=== PATIENT | female | born 1950 | race Caucasian/White ===

== ENCOUNTER 2016-11-19 13:27 | Emergency (ER) | payer MEDICARE ==
[~2016-11-19] VITALS: Ht 152.4 cm; Wt 65.0 kg
[~2016-11-19 13:27] MED LIST: ASPI81TA82 PO; MELO15TA2 PO; METH750T2 PO; METO25 PO; TRAM50 PO
[2016-11-19 13:34] VITALS: BP 119/81; PULSE 93; RESP 16; TEMP 99; O2SAT 97
--- NOTE | 2016-11-19 15:34 | PD ---
HPI Chief Complaint: Back/ Neck Pain or Injury Time Seen by Provider: 14:30 Travel History International Travel<30 days: No Contact w/Intl Traveler<30days: No Traveled to known affect area: No History of Present Illness HPI 66-year-old female presents to the emergency room for evaluation of low back pain for the past 3 days. Patient denies trauma or injury. States 4 days ago she lifted her dog out of a crate but had no pain at that time. The following morning she woke up with severe pain localized to the sacral area without any radiation. She denies any other hip or pelvic pain. States it has progressively gotten worse every day. She has been taking Motrin for pain with minimal relief in symptoms. She has a history of osteoporosis. Patient denies saddle anesthesia, loss of bowel or bladder control, lower extremity paresthesias, and IV drug use. PFSH Past Medical History Hx Anticoagulant Therapy: No Congestive Heart Failure: Yes Diabetes: No Diminished Hearing: No Headaches: Yes Hepatitis: Yes (HEPATITIS C FROM IV DRUG USE 20 YRS AGO) ?: Not Menopausal: Yes Past Surgical History Gynecologic Surgery: Yes (HYSTERECTOMY 1986) Hysterectomy: Yes Social History Alcohol Use: No Tobacco Use: No Substance Use: No Allergies-Medications (Allergen,Severity, Reaction): Coded Allergies: No Known Allergies (Verified , 11/19/16) Reported Meds & Prescriptions Reported Meds & Active Scripts Active Lortab (Hydrocodone-Acetaminophen) 5-325 Mg Tab 1 Tab PO Q6H PRN Review of Systems Except as stated in HPI: all other systems reviewed are Neg Physical Exam Narrative GENERAL: Well-nourished, well-developed female in no acute distress. Afebrile. Ambulatory. SKIN: Focused skin assessment warm/dry. HEAD: Normocephalic. EYES: No scleral icterus. No injection or drainage. NECK: Supple, trachea midline. No JVD or lymphadenopathy. CARDIOVASCULAR: Regular rate and rhythm without murmurs, gallops, or rubs. RESPIRATORY: Breath sounds equal bilaterally. No accessory muscle use. BACK: No CVA tenderness. No rash. Moderate to severe tenderness on palpation of the lower lumbar spine. 1+ Achilles and patellar reflexes are equal bilaterally. Strength 5/5 and equal in lower extremities. Data Data Last Documented VS Vital Signs Date Time Temp Pulse Resp B/P Pulse Ox O2 Delivery O2 Flow Rate FiO2 11/19/16 13:34 99.0 93 16 119/[address] Lumb Spine W/O Contrast (11/19/16 ) MDM Medical Decision Making Medical Screen Exam Complete: Yes Emergency Medical Condition: Yes Medical Record Reviewed: Yes Differential Diagnosis Back spasm, muscle pain, fracture, abrasion, osteoarthritis Narrative Course 66 year-old female with history of osteoporosis presents to the emergency room for evaluation of sacral pain for the past 3 days. Patient denies any specific trauma or injury. She has been ambulatory with a cane since onset of symptoms but with significant pain. No focal neurological deficits. Given patient's history of osteoporosis and extreme pain and point tenderness to palpation, a CT was ordered. CT shows unilateral sacral insufficiency fracture. Up-to- [email or web address].com recommends early mobilization and adequate pain control. Patient was informed that as long as she can ambulate and tolerate pain, she is stable for discharge. She is able to maneuver on the bed without significant difficulty but is obviously in pain. She declined pain medication in the emergency room because she wanted to be able to drive home. Patient believes she will be safe at home. She lives alone but has "an estranged " to help her if needed. She was told to follow up with an orthopedist or return for worsening symptoms. Given lifting restrictions. She understands and agrees to plan. Diagnosis Primary Impression: Sacral insufficiency fracture Qualified Code: M84.48XA - Sacral insufficiency fracture, initial encounter Referrals: Orthopedist Patient Instructions: General Instructions, Sacral Fracture (ED) Additional Instructions: Rest and drink plenty of fluids. Take Lortab as directed, as needed for pain. Apply ice to the affected area for 20 minutes at a time, as needed for pain. Do not drink alcohol or drive while taking this medication. Follow-up with an orthopedic surgeon or primary care physician for recheck in one week. Return to the emergency room for worsening symptoms. Med/Other Pt SpecificInfo: Prescription(s) given Scripts Hydrocodone-Acetaminophen (Lortab)5-325 Mg Tab1 Tab PO Q6H PRN (PAIN) #15 TAB Ref 0 Prov:Augustine Sanabria MD 11/19/16 Disposition: 01 DISCHARGE HOME Condition: Stable Randa Nava Nov 19, 2016 15:34
--- NOTE | 2016-11-19 16:17 | RADRPT ---
EXAM DATE/TIME: 11/19/2016 15:21 [facility] COMPARISON: No previous studies available for comparison. INDICATIONS : Back pain from lifting dog from vehicle. RADIATION DOSE: 26.11 CTDIvol (mGy) MEDICAL HISTORY : Hepatitis C. SURGICAL HISTORY : Hysterectomy. ENCOUNTER: Initial ACUITY: 1 day PAIN SCALE: 9/10 LOCATION: [facility] TECHNIQUE: Volumetric scanning of the lumbar spine was performed. Multiplanar reconstructions in the sagittal, coronal and oblique axial planes were performed. Using automated exposure control and adjustment of the mA and/or kV according to patient size, radiation dose was kept as low as reasonably achievable t o obtain optimal diagnostic quality images. DICOM format image data is available electronically for review and comparison. FINDINGS: VERTEBRAE: Normal vertebral body height. ALIGNMENT: No evidence of subluxation. There is a sacral insufficiency fracture multiple left sacrum. The right appears intact. T12-L1: The thecal sac has a normal diameter. No evidence of disc bulge or protrusion. The neural foramina are patent bilaterally. L1-L2: The thecal sac has a normal diameter. No evidence of disc bulge or protrusion. The neural foramina are patent bilaterally. L2-L3: Minimal broad-based disc bulge. Central canal and lateral recesses are patent. Neural foramina are pa tent. Facet joints are unremarkable. L3-L4: The thecal sac has a normal diameter. No evidence of disc bulge or protrusion. The neural foramina are patent bilaterally. L4-L5: A minimal broad based disc bulge. Lateral recesses and central canal are patent. Mild bony hypertroph y and ligamentum flavum hypertrophy of the facets. Neural foramina are patent. L5-S1: A left posterior lateral disc bulge. No abutment of the cord or narrowing of the neural foramen. Late ral recess is patent. Central canal is patent. Facet joints are unremarkable. CONCLUSION: Left-sided sacral insufficiency fracture. Morteza Valdes Jr., MD on November 19, 2016 at 16:11 Board Certified Radiologist. This report was verified electronically.
[2016-11-19] MEDS ORDERED: HYDR-3533 PO (16:43)
== END 2016-11-19 17:06 | disposition home or self-care (01) ==
LOC: PHEFT 13:27
DX: M84.48XA Pathological fracture, other site, initial encounter for fracture (principal)
CPT/HCPCS: 72131; 99284

== ENCOUNTER 2016-12-11 18:51 | Emergency (ER) | payer MEDICARE ==
[~2016-12-11] VITALS: Ht 152.4 cm; Wt 66.6 kg
[~2016-12-11 18:51] MED LIST changes: -ASPI81TA82 PO; +HYDR-3533 PO; -MELO15TA2 PO; -METH750T2 PO; -METO25 PO; -TRAM50 PO
[2016-12-11 18:54] VITALS: BP 151/85; PULSE 86; RESP 18; TEMP 98.2; O2SAT 97
[2016-12-11 19:15] VITALS: BP 133/78; PULSE 77; RESP 20; O2SAT 96
[2016-12-11 19:20] VITALS: BP_SYST 133; BP_SYST 134; BP_DIAS 78; BP_DIAS 82; PULSE 77; RESP 20; O2SAT 96
[2016-12-11] MEDS ORDERED: HYDR-3580 PO (19:36)
[2016-12-11] MEDS ORDERED: VALT500T PO (19:36)
[2016-12-11] MEDS ORDERED: AUGM500T7 PO (19:36)
[2016-12-11 19:45] LABS: AUTOMATED NEUTROPHIL # 2.8 TH/MM3 (1.8-7.7); BASOPHIL # 0.1 TH/MM3 (0-0.2); BASOPHIL % 0.9 % (0.0-2.0); EOSINOPHIL # 0.2 TH/MM3 (0-0.4); EOSINOPHIL % 3.1 % (0.0-4.0); HEMATOCRIT 38.9 % (35.0-46.0); HEMO FLAGS DIFF FINAL; LYMPH % 37.2 % (9.0-44.0); LYMPHOCYTE # 2.1 TH/MM3 (1.0-4.8); MEAN CELL VOLUME 87.2 FL (80.0-100.0); MEAN CORPUSCULAR HEMOGLOBIN 29.3 PG (27.0-34.0); MEAN CORPUSCULAR HGB CONC 33.5 % (32.0-36.0); MONO % 9.5 % (0.0-8.0); NEUT % 49.3 % (16.0-70.0); PLATELET COUNT 299 TH/MM3 (150-450); RED BLOOD COUNT 4.46 MIL/MM3 (4.00-5.30); RED CELL DISTRIBUTION WIDTH 12.2 % (11.6-17.2); WHITE BLOOD COUNT 5.7 TH/MM3 (4.0-11.0)
[2016-12-11] MEDS ORDERED: SODIUM CHLORIDE 0.9% FLUSH 10 ML FLUSH IVF PRN (19:45)
[2016-12-11 19:53] LABS: CHLORIDE 102 MEQ/L (98-107); POTASSIUM 4.1 MEQ/L (3.5-5.1); SODIUM (NA) 139 MEQ/L (136-145)
[2016-12-11 19:57] LABS: ANION GAP 5 MEQ/L (5-15); BICARBONATE 31.7 MEQ/L (21.0-32.0); BLOOD UREA NITROGEN 15 MG/DL (7-18); MAGNESIUM 1.9 MG/DL (1.5-2.5)
[2016-12-11 20:00] LABS: GLOMERULAR FILTRATION RATE 85 ML/MIN (>89)
[2016-12-11 20:02] LABS: APTT (PATIENT) 25.7 SEC (24.3-30.1); INTERNATIONAL NORMALIZED RATIO 0.9 RATIO
--- NOTE | 2016-12-11 20:05 | PD ---
HPI Chief Complaint: Dizziness Time Seen by Provider: 19:31 Travel History International Travel<30 days: No Contact w/Intl Traveler<30days: No Traveled to known affect area: No History of Present Illness HPI 66-year-old female presents to the emergency department complaining of dizziness intermittent headache and nausea since this morning. Patient denies any fall or injury. Patient was recently evaluated in the emergency department and diagnosed with sacral insufficiency fractures bilaterally and has been on bed rest since 11/19/16. Patient has remained as active as possible while at bed rest and has been ambulatory with assistance of walker and using wheelchair in her home. Patient has friends to check on her daily. Patient denies any sudden onset thunderclap or worst ever headache although intermittently headache has been severe up to 8/10 in intensity. No confusion no visual disturbance no loss of vision no double vision no field deficit no difficulty with speech or swallowing no neck pain no chest pain no pleuritic chest pain no shortness of breath no referred neck jaw back shoulder or arm pain and no abdominal pain. Patient's had some intermittent nausea but no vomiting. Patient denies any lower extremity numbness tingling or weakness also denies any bladder or bowel dysfunction and denies any saddle anesthesia. The patient denies any fever or chills. The patient has had no fall or injury. Symptoms been present all day. Headache at worst has been 8/10 in intensity. Patient denies any headache at this time. Patient's past history is Significant for CHF , headaches, hepatitis C, remote IV drug use, hysterectomy, hip surgery, and patient denies any alcohol use, tobacco use or substance use. ON LICENSE OF [facility] Past Medical History Narrative Medical CHF, hepatitis C, IV drug use, herpes, hysterectomy, hip surgery, sacral fracture, no tobacco use, no alcohol use, no substance use 20 years; nursing notes reviewed Hx Anticoagulant Therapy: No Congestive Heart Failure: Yes Diabetes: No Diminished Hearing: No Headaches: Yes Hepatitis: Yes (HEPATITIS C FROM IV DRUG USE 20 YRS AGO) Musculoskeletal: Yes (OSTEOPOROSIS) Tetanus Vaccination: Unknown Influenza Vaccination: Yes ?: Not Menopausal: Yes Past Surgical History Gynecologic Surgery: Yes (HYSTERECTOMY 1986) Hysterectomy: Yes Social History Alcohol Use: No Tobacco Use: No Substance Use: No Allergies-Medications (Allergen,Severity, Reaction): Coded Allergies: No Known Allergies (Verified , 12/11/16) Reported Meds & Prescriptions Reported Meds & Active Scripts Active Zofran Odt (Ondansetron Odt) 4 Mg Tab 4 Mg SL Q6HR PRN Meclizine (Meclizine HCl) 25 Mg Tab 25 Mg PO Q6HR PRN Reported Calcitonin ([place]) Nasal [place] (Calcitonin [place]) 200 Units/Act Soln 1 [place] NASAL DAILY Alternate nostrils daily. Augmentin (Amoxicillin-Clavulanate) 500-125 mg Tab 500 Mg PO BID Valtrex (Valacyclovir HCl) 500 Mg Tab 500 Mg PO DAILY Hydrocodone-Acetaminophen 7.5-325 mg Tab 1 Tab PO Q4H PRN Review of Systems Except as stated in HPI: all other systems reviewed are Neg General / Constitutional: No: Fever, Chills Eyes: No: Diploplia, Blurred Vision, Photophobia, Blind Spots, Visual changes HENT: Positive: Headaches, Vertigo, No: Lightheadedness, Congestion, Neck Stiffness, Neck Pain Cardiovascular: No: Chest Pain or Discomfort, Palpitations, Diaphoresis Respiratory: No: Shortness of Breath, Pleuritic Pain Gastrointestinal: Positive: Nausea, No: Vomiting, Abdominal Pain Genitourinary: No: Flank Pain Musculoskeletal: Positive: Myalgias, Arthralgias, Pain (low back/sacral pain) Skin: No Rash Neurologic: Positive: Dizziness, Headache, No: Weakness, Syncope, Focal Abnormalities, Coordination Problem, Ataxia, Change in Mentation, Slurred Speech , Paresthesia, Incontinence, Sensory Disturbance Psychiatric: Positive: Anxiety Endocrine: No: Heat Intolerance, Cold Intolerance Hematologic/Lymphatic: No: Easy Bruising Physical Exam Narrative GENERAL: Well-developed well-nourished female in no apparent acute distress or respiratory distress; GCS 15 SKIN: Warm and dry. HEAD: Atraumatic. Normocephalic. EYES: Pupils equal and round. Extraocular muscles are intact. No scleral icterus. No injection or drainage. ENT: No nasal bleeding or discharge. Mucous membranes pink and moist. Airway is patent. NECK: Trachea midline. No JVD. Supple. CARDIOVASCULAR: Regular rate and rhythm. RESPIRATORY: No accessory muscle use. Clear to auscultation. Breath sounds equal bilaterally. GASTROINTESTINAL: Abdomen soft, non-tender, nondistended. Hepatic and splenic margins not palpable. MUSCULOSKELETAL: Extremities without clubbing, cyanosis, or edema. No obvious deformities. Radial and dorsalis pedis pulses 2+ to palpation bilaterally with brisk capillary refill less than 2 seconds NEUROLOGICAL: Awake and alert. No obvious cranial nerve deficits. Motor grossly within normal limits. Five out of 5 muscle strength in the arms and legs. No sensory deficit. DTRs 2+ and equal. No limb ataxia. No pronator drift. Normal speech. PSYCHIATRIC: Appropriate mood and affect; insight and judgment normal. Data Data Last Documented VS Vital Signs Date Time Temp Pulse Resp B/P Pulse Ox O2 Delivery O2 Flow Rate FiO2 12/11/16 20:07 78 20 127/75 97 12/11/16 18:54 98.2 Orders Electrocardiogram (12/11/16 19:31) Basic Metabolic Panel (Bmp) (12/11/16 19:31) Complete Blood Count With Diff (12/11/16 19:31) Magnesium (Mg) (12/11/16 19:31) Ckmb (Isoenzyme) Profile (12/11/16 19:31) Troponin I (12/11/16 19:31) Act Partial Throm Time (Ptt) (12/11/16 19:31) Prothrombin Time / Inr (Pt) (12/11/16 19:31) Urinalysis - C+S If Indicated (12/11/16 19:31) Chest, Single Ap (12/11/16 19:31) Ecg Monitoring (12/11/16 19:31) Iv Access Insert/Monitor (12/11/16 19:31) Oximetry (12/11/16 19:31) Sodium Chloride 0.9% Flush (Ns Flush) (12/11/16 19:45) D-Dimer (12/11/16 19:31) Ct Brain W/O Iv Contrast(Rout) (12/11/16 ) Meclizine (Antivert) (12/11/16 22:15) Ondansetron Inj (Zofran Inj) (12/11/16 22:15) Ketorolac Inj (Toradol Inj) (12/11/16 22:15) Labs Laboratory Tests Test 12/11/16 12/11/16 19:10 21:07 White Blood Count 5.7 TH/MM3 Red Blood Count 4.46 MIL/MM3 Hemoglobin 13.1 GM/DL Hematocrit 38.9 % Mean Corpuscular Volume 87.2 FL Mean Corpuscular Hemoglobin 29.3 PG Mean Corpuscular Hemoglobin 33.5 % Concent Red Cell Distribution Width 12.2 % Platelet Count 299 TH/MM3 Mean Platelet Volume 8.3 FL Neutrophils (%) (Auto) 49.3 % Lymphocytes (%) (Auto) 37.2 % Monocytes (%) (Auto) 9.5 % Eosinophils (%) (Auto) 3.1 % Basophils (%) (Auto) 0.9 % Neutrophils # (Auto) 2.8 TH/MM3 Lymphocytes # (Auto) 2.1 TH/MM3 Monocytes # (Auto) 0.5 TH/MM3 Eosinophils # (Auto) 0.2 TH/MM3 Basophils # (Auto) 0.1 TH/MM3 CBC Comment DIFF FINAL Differential Comment Prothrombin Time 10.0 SEC Prothromb Time International 0.9 RATIO Ratio Activated Partial 25.7 SEC Thromboplast Time D-Dimer Quantitative (PE/DVT) 0.48 MG/L FEU Sodium Level 139 MEQ/L Potassium Level 4.1 MEQ/L Chloride Level 102 MEQ/L Carbon Dioxide Level 31.7 MEQ/L Anion Gap 5 MEQ/L Blood Urea Nitrogen 15 MG/DL Creatinine 0.69 MG/DL Estimat Glomerular Filtration 85 ML/MIN Rate Random Glucose 100 MG/DL Calcium Level 9.2 MG/DL Magnesium Level 1.9 MG/DL Total Creatine Kinase 58 U/L Troponin I LESS THAN 0.02 NG/ML Urine Color STRAW Urine Turbidity CLEAR Urine pH 6.0 Urine Specific [place] 1.005 Urine Protein NEG mg/dL Urine Glucose (UA) NEG mg/dL Urine Ketones NEG mg/dL Urine Occult Blood NEG Urine Nitrite NEG Urine Bilirubin NEG Urine Leukocyte Esterase NEG Urine RBC 0-2 /hpf Urine WBC 0-2 /hpf Urine Squamous Epithelial 0-5 /hpf Cells Urine Bacteria NONE /hpf Microscopic Urinalysis Comment CULT NOT INDICATED MDM Medical Decision Making Medical Screen Exam Complete: Yes Emergency Medical Condition: Yes Medical Record Reviewed: Yes Interpretation(s) EKG: Normal sinus rhythm rate [address] elevation or injury pattern or ectopy noted CK: 58, not elevated; troponin I less than 0.02, not elevated D-dimer: 0.48, not elevated Coag studies: within normal range Last Impressions Chest X-Ray 12/11/16 193 Signed Impressions: Service Date/Time: , December 11, 2016 19:43 - CONCLUSION: The lungs are clear. Morteza Marrero MD Head CT 12/11/16 0000 Signed Impressions: Service Date/Time: December 21:13 - CONCLUSION: Negative noncontrast CT brain. Morteza Marrero MD CBC & BMP Diagram 12/11/16 19:10 Vital Signs Date Time Temp Pulse Resp B/P Pulse Ox O2 Delivery O2 Flow Rate FiO2 12/11/16 20:07 78 20 127/75 97 12/11/16 19:26 77 20 12/11/16 19:20 77 20 133/78 96 134/82 12/11/16 19:15 77 20 133/78 96 12/11/16 18:54 98.2 86 18 151/85 97 Differential Diagnosis Dizziness, TIA, arrhythmia, vertigo, labyrinthitis, sinusitis, ACS, PE, UTI Narrative Course Patient placed on monitor IV access obtained EKG performed Specimens collected and sent for resulting CT brain noncontrast ordered D-dimer 0.48 not elevated Patient administered meclizine and Zofran Patient stable for outpatient management and follow-up with her primary care provider for management of vertiginous dizziness Diagnosis Primary Impression: Dizziness Referrals: Primary Care Physician call for appointment Patient Instructions: General Instructions Additional Instructions: Increase fluid hydration Take medications as needed as prescribed Follow-up with your primary care provider call office in a.m. to schedule follow -up appointment Take acetaminophen/Tylenol as needed for fever 100.4F or greater May take as tolerated ibuprofen up to 600 mg as often as every 6-8 hours for pain associated inflammation or for fever 100.4F or greater Return to the emergency department for pain fever or any concerns Med/Other Pt SpecificInfo: Prescription(s) given Scripts Ondansetron Odt (Zofran Odt)4 Mg Tab4 Mg SL Q6HR PRN (Nausea/Vomiting) #10 TAB Ref 0 Prov:Kiera Villatoro MD 12/11/16 Meclizine 25 Mg Tab25 Mg PO Q6HR PRN (VERTIGO) #12 TAB Ref 0 Prov:Kiera Villatoro MD 12/11/16 Disposition: 01 DISCHARGE HOME Condition: Stable Kiera Villatoro MD Dec 11, 2016 20:04
[2016-12-11 20:07] VITALS: BP 127/75; PULSE 78; RESP 20; O2SAT 97
[2016-12-11 20:25] LABS: CREATINE KINASE 58 U/L (26-192)
--- NOTE | 2016-12-11 20:25 | RADRPT ---
EXAM DATE/TIME: 12/11/2016 19:43 [facility] COMPARISON: No previous studies available for comparison. INDICATIONS : Dizzyness and instability for 3 weeks , unable to get out of bed. MEDICAL HISTORY : Hepatitis C. osteoporosis SURGICAL HISTORY : Hysterectomy. ENCOUNTER: Initial ACUITY: 3 weeks PAIN SCORE: 8/10 LOCATION: Bilateral back FINDINGS: A single view of the chest demonstrates the lungs to be symmetrically aerated without evidence of mas s, infiltrate or effusion. No evidence of pneumothorax. The cardiomediastinal contours are unremark able. Osseous structures are intact. CONCLUSION: The lungs are clear. Morteza Marrero MD on December 11, 2016 at 20:23 Board Certified Radiologist. This report was verified electronically.
[2016-12-11] MEDS ORDERED: CALC200S NASAL (20:35)
[2016-12-11 21:11] LABS: BLOOD, URINE NEG (NEG); GLUCOSE,URINE NEG (NEG); KETONE, URINE NEG (NEG); NITRITE,URINE NEG (NEG)
[2016-12-11 21:13] LABS: URINE COLOR STRAW (YELLW/STRAW)
[2016-12-11 21:18] LABS: COMMENT (UR) CULT NOT INDICATED; CULTURE IF INDICATED CULT NOT INDICATED; RBC, URINE 0-2 /hpf (0-3); SQUAMOUS EPITHELIAL CELL URINE 0-5 /hpf (0-5); WBC, URINE 0-2 /hpf (0-5)
[2016-12-11 21:30] VITALS: BP 144/76; PULSE 74; RESP 20; O2SAT 98
--- NOTE | 2016-12-11 21:55 | RADRPT ---
EXAM DATE/TIME: 12/11/2016 21:13 [facility] COMPARISON: No previous studies available for comparison. INDICATIONS : Dizziness and nausea. RADIATION DOSE: 59.65 CTDIvol (mGy) MEDICAL HISTORY : Hepatitis C. SURGICAL HISTORY : Hysterectomy. ENCOUNTER: Initial ACUITY: 3 days PAIN SCALE: 9/10 LOCATION: cranial TECHNIQUE: Multiple contiguous axial images were obtained of the head. Using automated exposure control and adj ustment of the mA and/or kV according to patient size, radiation dose was kept as low as reasonably a chievable to obtain optimal diagnostic quality images. DICOM format image data is available electro nically for review and comparison. FINDINGS: CEREBRUM: The ventricles are normal for age. No evidence of midline shift, mass lesion, hemorrhage or acute in farction. No extra-axial fluid collections are seen. POSTERIOR FOSSA: The cerebellum and brainstem are intact. The 4th ventricle is midline. The cerebellopontine angle i s unremarkable. EXTRACRANIAL: The visualized portion of the orbits is intact. SKULL: The calvaria is intact. No evidence of skull fracture. CONCLUSION: Negative noncontrast CT brain. Morteza Marrero MD on December 11, 2016 at 21:53 Board Certified Radiologist. This report was verified electronically.
[2016-12-11] MEDS ORDERED: ONDANSETRON HCL 4 MG/2 ML VIAL IV PUSH ONE (22:15)
[2016-12-11] MEDS ORDERED: KETOROLAC TROMETHAMINE 30 MG/ML (IVP) VIAL IV PUSH ONE (22:15)
[2016-12-11] MEDS ORDERED: MECLIZINE HCL 25 MG TAB PO ONE (22:15)
[2016-12-11] MEDS ORDERED: MECL-62 PO (22:40)
[2016-12-11] MEDS ORDERED: ZOFR4TAB3 SL (22:40)
[2016-12-11 23:05] VITALS: BP 157/87
--- NOTE | 2016-12-12 10:17 | EKG ---
Date Performed: 12/11/2016 Time Performed: 19:06:06 PTAGE: 66 years EKG: Sinus rhythm LOW QRS VOLTAGE IN PRECORDIAL LEADS BORDERLINE ECG Since PREVIOUS TRACING , no significant change noted PREVIOUS TRACIN09/15/2014 10.38 DOCTOR: Geovany Fletcher Interpretating Date/Time 12/12/2016 10:15:45
== END 2016-12-11 23:08 | disposition home or self-care (01) ==
LOC: PHED 18:51
DX: R42 Dizziness and giddiness (principal); R51 Headache; I50.9 Heart failure, unspecified; B19.20 Unspecified viral hepatitis C without hepatic coma
CPT/HCPCS: 70450; 71010; 80048; 81001; 82550; 83735; 84484; 85025; 85379; 85610; 85730; 93005; 96374; 96375; 99285; J1885; J2405